=== PATIENT | female | born 1960 | race Caucasian/White ===

== ENCOUNTER 2017-09-24 19:54 | Emergency (ER) | payer OTHER, MEDICAID, SELFPAY ==
[2017-09-24 20:06] VITALS: BP 167/83; PULSE 68; RESP 18; TEMP 36.4; O2SAT 100; BMI 37.2
--- NOTE | 2017-09-24 20:21 | DI.CT.S_ITS ---
PROCEDURE: CT KIDNEY URETER BLADDER (KUB) INDICATIONS: left flank TECHNIQUE: Noncontrast 5 mm thick sections acquired from the diaphragms to the symphysis. 5 mm thick coronal and sagittal reformats were then performed. For radiation dose reduction, the following was used: automated exposure control, adjustment of mA and/or kV according to patient size. COMPARISON: None. FINDINGS: Image quality: Excellent. Lung bases: Lung bases are clear. Heart size is normal. Urinary system: The left kidney demonstrates 3 areas of calcification the largest in the superior pole measuring approximately 6 mm. There is a 6 mm distal left ureteral calculus, Hounsfield units measure 480. It is approximately 3 cm superior to the ureterovesicular junction. There is moderate left hydronephrosis and hydroureter with perinephric stranding. The right kidney demonstrates 5 areas of calcification, the largest measuring 5 mm. There is trace prominence of the renal collecting system on the right. Bladder wall thickness is normal; no calcified bladder stones. Other solid organs: Liver is normal in size. Gallbladder has been removed. Common bile duct is mildly prominent measuring 11 mm. Pancreas is normal in contours. Spleen is normal in size. No adrenal nodules. Peritoneum and bowel: Unenhanced bowel loops demonstrate normal wall thickness and caliber. No free fluid or air. Colonic diverticula are present without associated inflammatory change. Nodes and vessels: No retroperitoneal or mesenteric adenopathy by size criteria. Aorta and inferior vena cava are normal in caliber. Abdominal wall: No ventral hernias. Pelvis: No free pelvic fluid. No inguinal hernias or adenopathy. Bones: No suspicious bony lesions. No vertebral body compression fractures. IMPRESSION: 1. Moderate left hydronephrosis and hydroureter secondary to distal right ureteral calculus. 2. Bilateral renal calcifications as above. Minimal prominence of the right renal collecting system is noted. 3. Diverticulosis. Dictated by: Alexandra Park M.D. on 09/24/2017 at 21:51 Approved by: Alexandra Park M.D. on 09/24/2017 at 21:56
--- NOTE | 2017-09-24 20:27 | ED_ITS ---
HPI - Female Genitourinary General Chief complaint: Urogenital-Female Stated complaint: kidney stones Time Seen by Provider: 09/24/17 20:39 Source: patient Mode of arrival: ambulatory History of Present Illness HPI Narrative: patient is a 57-year-old female who presents with left flank pain. He has a history of kidney stones of this feels like a kidney stone however this is much more painful. it is radiating around to the abdomen into the urethra. She has been nauseous and vomiting. She has passed some before however she has also required lithotripsy.She denies any fever or chills. Related Data Previous Rx's Medication Instructions Recorded ondansetron 4 mg PO Q6-8H PRN #10 tab 09/24/17 oxycodone-acetaminophen 1 tab PO Q6H PRN #10 tab 09/24/17 Allergies Allergy/AdvReac Type Severity Reaction Status Date / Time Sulfa (Sulfonamide Allergy Severe Anaphylaxis Verified 09/24/17 20:09 Antibiotics) Review of Systems Review of Systems All systems reviewed & are unremarkable except as noted in HPI and below Constitutional Denies chills, Denies fever(s), Denies lethargy and Denies weakness Cardiovascular Denies chest pain, Denies irregular heart rhythm, Denies lightheadedness, Denies palpitations, Denies dyspnea, Denies dyspnea on exertion and Denies orthopnea Respiratory Denies cough, Denies dyspnea, Denies dyspnea on exertion and Denies wheezing Gastrointestinal Gastrointestinal: Reports as per HPI Genitourinary Reports as per HPI Musculoskeletal Denies back pain, Denies muscle weakness, Denies numbness and Denies tingling Integumentary/Breasts Denies pruritus, Denies erythema, Denies rash and Denies wounds Neurologic Denies numbness, Denies tingling and Denies weakness Endocrine Denies palpitations Allergic/Immunologic Denies wheezing [facility] Medical History H/O fibromyalgia (Acute) History of hysterectomy (Acute) Hypertension (Acute) Hypothyroid (Acute) Kidney stones (Acute) Rheumatoid arthritis (Acute) Surgical History History of appendectomy (Acute) History of cholecystectomy (Acute) Social History Smoking Status: Former smoker Exam Initial Vital Signs Initial Vital Signs: Vital Signs Temperature 97.6 F 09/24/17 20:06 Pulse Rate 68 09/24/17 20:06 Respiratory Rate 18 09/24/17 20:06 Blood Pressure 167/83 H 09/24/17 20:06 Pulse Oximetry 100 09/24/17 20:06 GENERAL: appears in pain holding left flank pain HEENT: Head atraumatic,EOMI, pupils reactive, CARDIOVASCULAR: Regular rate and rhythm without murmurs, rubs or gallops. RESPIRATORY: Breath sounds equal bilaterally, no wheezes rales or rhonchi. ABDOMEN: Soft, nontender. Normoactive bowel sounds all 4 quadrants. No guarding or rebound. : left CVA tenderness EXTREMITIES: Normal range of motion, no clubbing or edema. Neurovascularly intact NEUROLOGICAL: Alert and oriented x4.Normal gait and speech. Cranial nerves II through XII grossly intact. SKIN: Warm, dry, no laceration, no petechiae, no rashes or lesions. Course Orders Ordered: ED Orders 09/24/17 20:20 Complete Blood Count AUTO DIFF Stat Comprehensive Metabolic Panel Stat Lipase Stat 09/24/17 20:21 CT kidney ureter bladder (KUB) Stat 09/24/17 20:33 Urinalysis and Microscopic Stat Discontinued Medications Sodium Chloride (Normal Saline 0.9%) 1,000 mls @ 1,000 mls/hr IV CONT ANTONINA Last Infusion: 09/24/17 22:17 Dose: 0 mls/hr Admin: 09/24/17 20:35 Dose: 1,000 mls/hr Ketorolac Tromethamine (Toradol) 30 mg IV NOW ONE Stop: 09/24/17 20:22 Last Admin: 09/24/17 20:35 Dose: 30 mg Morphine Sulfate (Morphine) 2 mg IV NOW ONE Stop: 09/24/17 21:02 Last Admin: 09/24/17 21:04 Dose: 2 mg Ondansetron HCl (Zofran) 4 mg IV NOW ONE Stop: 09/24/17 20:22 Last Admin: 09/24/17 20:35 Dose: 4 mg Ondansetron HCl (Zofran Odt Prepack) 1 bottle MISC SEEINSTR ONE Stop: 09/24/17 23:00 Last Admin: 09/24/17 23:12 Dose: 1 bottle Oxycodone/Acetaminophen (Endocet 5/325 Prepack) 1 bottle MISC SEEINSTR ONE Stop: 09/24/17 23:00 Last Admin: 09/24/17 23:12 Dose: 1 bottle Vital Signs - 8 hr 09/24/17 21:46 Pulse Rate 62 Respiratory Rate 17 Blood Pressure [Right Arm] 131/67 H Pulse Oximetry 96 MDM - Female Genitourinary Lab Data Attestation: I reviewed the patient's lab results. Result diagrams: 09/24/17 20:20 09/24/17 20:20 Lab Results 09/24/17 09/24/17 09/24/17 Range/Units 20:20 20:20 20:33 WBC 9.7 (4.5-11.0) X10^3/uL RBC 4.39 (4.0-5.2) X10^6/uL Hgb 13.9 (12.0-16.0) g/dL Hct 40.7 (36-46) % MCV 92.6 (80-100) fL MCH 31.6 (26-34) PG MCHC 34.1 (30-36) % RDW 13.8 (11.6-14.8) % Plt Count 291 (150-400) X10^3/uL Neut % (Auto) 67.9 (50-75) % Lymph % (Auto) 19.8 L (25-40) % [place] % (Auto) 10.2 (3-14) % Eos % (Auto) 1.5 L (2-4) % Baso % (Auto) 0.6 (0-2) % Neut # (Auto) 6600 H (9473-1880) /uL Sodium 141 (137-145) mmol/L Potassium 4.2 (3.4-5.1) mmol/L Chloride 102 (98-107) mmol/L Carbon Dioxide 32 (22-32) mmol/L BUN 18 H (7-17) mg/dL Creatinine 0.80 (0.52-1.04) mg/dL Estimated GFR > 60.0 (>60) mL/min BUN/Creatinine Ratio 22.5 H (6-22) Glucose 94 (70-100) mg/dL Calcium 9.3 (8.4-10.2) mg/dL Total Bilirubin 0.3 (0.2-1.3) mg/dL AST 21 (14-36) IU/L ALT 20 (9-52) IU/L Alkaline Phosphatase 83 (38-126) U/L Total Protein 6.7 (6.3-8.2) g/dL Albumin 3.9 (3.5-5.0) g/dL Globulin 2.8 (1.7-4.1) g/dL Albumin/Globulin Ratio 1.4 (1.0-2.8) Lipase 87 (23-300) U/L Urine Color Yellow Urine Appearance Clear Urine pH 7.0 (4.5-8.0) Ur Specific [place] <=1.005 (1.000-1.035) Urine Protein Negative (Negative) Urine Glucose (UA) Negative (Normal) g/dL Urine Ketones Negative (NEGATIVE) Urine Occult Blood 1+ H (Negative) Urine Nitrate Negative (Negative) Urine Bilirubin Negative (NEGATIVE) Urine Urobilinogen 0.2 (0.2) E.U./dL Ur Leukocyte Esterase Negative (NEGATIVE) Urine RBC 1-5/hpf (0-5/HPF) Urine WBC None seen (0-5/HPF) Urine Bacteria None seen (None) Imaging Data CT scan - abdomen: Radiologist's impression: PROCEDURE: CT KIDNEY URETER BLADDER (KUB) INDICATIONS: left flank TECHNIQUE: Noncontrast 5 mm thick sections acquired from the diaphragms to the symphysis. 5 mm thick coronal and sagittal reformats were then performed. For radiation dose reduction, the following was used: automated exposure control, adjustment of mA and/or kV according to patient size. COMPARISON: None. FINDINGS: Image quality: Excellent. Lung bases: Lung bases are clear. Heart size is normal. Urinary system: The left kidney demonstrates 3 areas of calcification the largest in the superior pole measuring approximately 6 mm. There is a 6 mm distal left ureteral calculus, Hounsfield units measure 480. It is approximately 3 cm superior to the ureterovesicular junction. There is moderate left hydronephrosis and hydroureter with perinephric stranding. The right kidney demonstrates 5 areas of calcification, the largest measuring 5 mm. There is trace prominence of the renal collecting system on the right. Bladder wall thickness is normal; no calcified bladder stones. Other solid organs: Liver is normal in size. Gallbladder has been removed. Common bile duct is mildly prominent measuring 11 mm. Pancreas is normal in contours. Spleen is normal in size. No adrenal nodules. Peritoneum and bowel: Unenhanced bowel loops demonstrate normal wall thickness and caliber. No free fluid or air. Colonic diverticula are present without associated inflammatory change. Nodes and vessels: No retroperitoneal or mesenteric adenopathy by size criteria. Aorta and inferior vena cava are normal in caliber. Abdominal wall: No ventral hernias. Pelvis: No free pelvic fluid. No inguinal hernias or adenopathy. Bones: No suspicious bony lesions. No vertebral body compression fractures. IMPRESSION: 1. Moderate left hydronephrosis and hydroureter secondary to distal right ureteral calculus. 2. Bilateral renal calcifications as above. Minimal prominence of the right renal collecting system is noted. 3. Diverticulosis. Dictated by: Alexandra Park M.D. on 09/24/2017 at 21:51 MDM Narrative Medical decision making narrative: Pain is improved. She denies having any pain contract though she does come with in the ED report. She says she has not taken any oxycodone since January. I will give her some narcotics for this kidney stone. I strongly recommended that she follow up in the [facility] with her urologist. She is given information about local urology. Discharge Plan Departure Patient Disposition: Home, Self-Care Clinical Impression: Kidney stone on left side Discharge Date/Time: 09/24/17 23:18 Interventions: ED Discharge Assessment Last Done: 09/24/17 23:17 Instructions: DI for Kidney Stones Activity Restrictions/Additional Instructions: *Increase fluid intake *Call urology office tomorrow, to schedule follow-up appointment. Strain urine, try to catch stone -If you should have fever, or pain is uncontrolled with medication at home or any other concerning symptoms return to ER for further evaluation MEDICATIONS Take Percocet every 6 hours if needed for severe pain Take Zofran every 4-6 hours if needed for nausea CONTROLLED SUBSTANCE DISCHARGE (Narcotoic/benzodiazepine) 1. You have been prescribed narcotic medications, it does have acetaminophen/ Tylenol/paracetamol in it so do not take extra Tylenol or Tylenol containing products 2. Please understand that we cannot provide further refills of narcotics, benzodiazepines or controlled substances through the ED and her pain management will need to be through your provider. 3. While on these medications you cannot drive or operate heavy machinery. 4. You cannot sign legal documents or perform any duties such as this. 5. As long as you're taking opiate pain medications he should also be taking a stool softener such as Colace, Dulcolax, MiraLAX or prune juice, to help avoid constipation. Prescriptions: New oxycodone-acetaminophen 5-300 mg tablet 1 tab PO Q6H PRN (Reason: pain) Qty: 10 RF: 0 ondansetron 4 mg tablet,disintegrating 4 mg PO Q6-8H PRN (Reason: nausea and vomiting) Qty: 10 RF: 0 Referrals: [facility] Urology [Provider Group]
[2017-09-24 20:35] LABS: Add Manual Diff / Slide Review NO; Basophils Percent Auto 0.6 % (0-2); Eosinophils Percent Auto 1.5 % (2-4); Hematocrit 40.7 % (36-46); Hemoglobin 13.9 g/dL (12.0-16.0); Lymphocytes Percent Auto 19.8 % (25-40); Mean Corpuscular HGB Conc 34.1 % (30-36); Mean Corpuscular Hemoglobin 31.6 PG (26-34); Mean Corpuscular Volume 92.6 fL (80-100); Monocytes Percent Auto 10.2 % (3-14); Neutrophils Absolute Auto 6600 /uL (3000-5900); Neutrophils Percent Auto 67.9 % (50-75); Platelet Count 291 X10^3/uL (150-400); Red Blood Cell Count 4.39 X10^6/uL (4.0-5.2); Red Cell Distribution Width 13.8 % (11.6-14.8); White Blood Cell Count 9.7 X10^3/uL (4.5-11.0)
[2017-09-24] MEDS: SODIUM CHLORIDE 0.9% 1,000 ML 1000 ML IV (20:35)
[2017-09-24] MEDS: ONDANSETRON 4 MG/2 ML INJ IV (20:35)
[2017-09-24] MEDS: KETOROLAC 60 MG/2 ML VIAL 30 MG IV (20:35)
[2017-09-24 20:36] LABS: Alanine Aminotransferase 20 IU/L (9-52); Albumin 3.9 g/dL (3.5-5.0); Albumin Globulin Ratio 1.4 (1.0-2.8); Alkaline Phosphatase 83 U/L (38-126); Aspartate Aminotransferase 21 IU/L (14-36); BUN Creatinine Ratio 22.5 (6-22); Bilirubin Total 0.3 mg/dL (0.2-1.3); Blood Urea Nitrogen 18 mg/dL (7-17); Calcium 9.3 mg/dL (8.4-10.2); Carbon Dioxide 32 mmol/L (22-32); Chloride 102 mmol/L (98-107); Estimated Glomerular Filt Rate > 60.0 mL/min (>60); Globulin 2.8 g/dL (1.7-4.1); Glucose 94 mg/dL (70-100); HEMOLYSIS < 15 (0-50); Lipase 87 U/L (23-300); Potassium 4.2 mmol/L (3.4-5.1); Sodium 141 mmol/L (137-145); Total Protein 6.7 g/dL (6.3-8.2)
[2017-09-24 20:44] LABS: Bacteria Urine None Seen; WBC Urine None Seen (0-5/HPF)
[2017-09-24 20:54] LABS: Appearance Urine UA CLEAR; Bilirubin Urine UA NEGATIVE (NEGATIVE); Color Urine UA YELLOW; Glucose Urine UA NEGATIVE (Normal); Ketones Urine UA NEGATIVE (NEGATIVE); Leukocyte Esterase Urine UA NEGATIVE (NEGATIVE); Nitrite Urine UA Negative (Negative); Occult Blood Urine UA 1+ (Negative); Protein Urine UA NEGATIVE (Negative); Specific Gravity Urine UA <=1.005 (1.000-1.035); Urobilinogen Urine UA 0.2 E.U./dL (0.2)
[2017-09-24 20:58] LABS: RBC Urine 1-5/HPF (0-5/HPF)
[2017-09-24] MEDS: MORPHINE 2 MG/ML INJ IV (21:04)
[2017-09-24 21:46] VITALS: BP 131/67; PULSE 62; RESP 17; O2SAT 96
[2017-09-24] MEDS: OXYCODONE/APAP 5/325 PREPACK 1 BOTTLE MISC (23:12)
[2017-09-24] MEDS: ONDANSETRON 4 MG ODT PREPACK 1 BOTTLE MISC (23:12)
== END 2017-09-24 23:18 | disposition home or self-care (01) ==
PROVIDERS: Emergency Provider Emergency Medicine
DX: N20.0 Calculus of kidney (principal)
CPT/HCPCS: 36591; 74176; 80053; 81001; 83690; 85025; 96361; 96374; 96375; 99283; 99284; J1885; J2270; J2405